=== PATIENT | female | born 1980 | race Caucasian/White ===

== ENCOUNTER 2017-06-12 22:19 | Emergency (ER) | payer MEDICARE ==
--- NOTE | 2017-06-12 22:46 | ED Physician Documentation ---
Headache - HISTORIAN Historian: patient, parent - HPI Chief Complaint: Headache Onset: hours (1899) Timing: still present, worse Quality: similar to previous Associated Symptoms: nausea. denies: vomiting Exacerbated By: light, noise, movement Further Comments: yes (36 year old female patient brought into ER by her mother with severe headache. 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 Patient reports history of severe headaches. Denies recent illness. Patient walked into ER with blanket over her head.) - ROS NEURO/PSYCH: denies: confusion, anxiety, depression EYES/ENT: denies: sore throat, difficulty swallowing, sinus pain, drainage CVS/RESP: none GI/: diarrhea. denies: problems urinating all systems neg except as marked: Yes - PAST HX Medical History: other (PTSD, anxiety, bipolar) Allergies/Adverse Reactions: Allergies Allergy/AdvReac Type Severity Reaction Status Date / Time codeine AdvReac Unknown Hallucinati Verified 06/12/17 22:54 ons bismuth subsalicylate AdvReac Nausea/Vomi Verified 06/12/17 22:54 [From Pepto-Bismol] ting Home Medications: Ambulatory Orders Medication Instructions Recorded Levomefolate/Algal Oil 1 tab PO D 06/12/17 [Deplin-Algal Oil 15 mg Capsule] Mirtazapine [Remeron] 15 mg PO D 06/12/17 Oxcarbazepine [Trileptal] 450 mg PO D 06/12/17 - SOCIAL HX Smoking History: non-smoker - Family HX Family History: denies: none - VITAL SIGNS Vital Signs: Vital Signs Temp Pulse Resp BP Pulse Ox 97.4 F L 66 16 112/79 98 06/12/17 22:19 06/12/17 22:19 06/12/17 22:19 06/12/17 22:19 06/12/17 22:19 - REVIEWED ASSESSMENTS Nursing Assessment Reviewed: Yes Vitals Reviewed: Yes Progress - Progress Progress: Will try 1 dose of imitrex for severe headache. 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 ED Results Lab/Radiology - Orders Orders: ED Orders Category Date Time Status LORazepam [Ativan] Med 06/12/17 23:42 Once 1 mg PO NOW ONE Promethazine HCl [Phenergan] Med 06/12/17 23:41 Once 25 mg IM NOW ONE SUMAtriptan SUCCINATE [Imitrex] Med 06/12/17 22:43 Discontinued 6 mg SQ NOW ONE Headache Physical Exam - EXAM General Appearance: moderate distress EENT: no facial swelling, eyes nml inspection, PERRL, nml ENT, pharynx nml Respiratory: no resp distress, chest non-tender, breath sounds normal CVS: reg. rate & rhythm, heart sounds nml Abdomen: non-tender, no organomegaly, nml bowel sounds, no distention Skin: color nml, no rash, warm, nml palp., dry Extremitites: non-tender, normal range of motion, no evidence of injury, no edema, J, SITE MONITOR - NEURO/PSYCH Higher Functions: oriented x3, nml speech, mood/affect nml Cranial: no evidence of acute CVA Sensorimotor: motor nml, sensation nml Discharge Clincal Impression: Nausea Headache Qualifiers: Headache type: tension-type Headache chronicity pattern: acute headache Intractability: not intractable Qualified Code(s): G44.209 - Tension-type headache, unspecified, not intractable Referrals: Isela Davenport MD [Primary Care Provider] - 3 Days Additional Instructions: Follow up next week with Dr Davenport for a headache treatment plan. You may use Tylenol or ibuprofen as needed for your headaches. A prescription for nausea medication was sent to the pharmacy. Condition: Stable Disposition: 01 HOME, SELF-CARE Decision to Admit: NO Decision Time: 23:43
[2017-06-12] MEDS: SUMAtriptan SUCCINATE 6 MG/0.5 ML VIAL SQ ONE (22:51)
[2017-06-13] MEDS: PROMETHAZINE HCL 25 MG/ML VIAL IM ONE (00:05)
[2017-06-13] MEDS: LORazepam 1 MG TABLET PO ONE (00:06)
[2017-06-13 00:57] VITALS: BP 113/77
== END 2017-06-13 00:08 | disposition home or self-care (01) ==
LOC: ED 22:19
DX: R11.0 Nausea (principal); G44.209 Tension-type headache, unspecified, not intractable
CPT/HCPCS: 96372; 99283; J2550; J3030